=== PATIENT | male | born 1955 | race Caucasian/White ===

== ENCOUNTER 2016-08-11 15:11 | Day surgery (SDC) | payer OTHER ==
[~2016-08-11] VITALS: Ht 170.2 cm; Wt 88.2 kg
[~2016-08-11 15:11] MED LIST: ASPI81TA16 PO; ATOR80TA75 PO; CLOP75TA4 PO; FURO20TA3 PO; IBUP-1542 PO; LISI2.5T59 PO; METO-448 PO; NIT4 SL; PEN500 PO; POTA20TA96 PO
[2016-08-11 16:17] VITALS: Ht 170.2 cm; Wt 88.2 kg
[2016-08-11] MEDS ORDERED: PROPOFOL 20 ML ONE (16:26)
[2016-08-11 16:32] VITALS: BP 103/59; PULSE 58; RESP 20
[2016-08-11] MEDS ORDERED: SACU1TAB PO (16:50)
[2016-08-11] MEDS ORDERED: DICL100G37 TOP (16:50)
[2016-08-11] MEDS ORDERED: ACET1TAB40 PO (16:50)
[2016-08-11] MEDS ORDERED: GABA300C16 PO (16:50)
[2016-08-11 17:39] VITALS: BP 105/58; PULSE 57; RESP 20
--- NOTE | 2016-08-11 18:33 | GILP ---
DATE OF PROCEDURE: 08/11/2016 NAME OF PROCEDURES: Colonoscopy and biopsy. SURGEON: Kesha Ontiveros MD PREOPERATIVE DIAGNOSIS: Screening colonoscopy. POSTOPERATIVE DIAGNOSES 1. Colonoscopy all the way to the cecum. 2. Two small transverse colon polyps were removed using the biopsy forceps. 3. Internal hemorrhoids. INDICATION FOR THE PROCEDURE: Mr. Mauricio Brown is a 61-year-old male patient, who is scheduled for screening colonoscopy. The procedure and possible complications were well explained to the patient, he understood, and cons ented to the procedure. DESCRIPTION OF PROCEDURE: Under the influence of anesthesia, the colonoscope was carefully introduc ed in the rectum, and under direct vision, it was advanced all the way to the cecum. FINDINGS: The patient had 2 small transverse colon polyps and they were removed using the biopsy fo rceps. He was noted to have internal hemorrhoids. He tolerated the procedure very well. There was no complication from the procedure. At the end of the procedure, he was awake with stable vital signs, and he was discharged home to the care of his [facility]. IMPRESSION: 1. Colonoscopy all the way to the cecum. 2. Two small transverse colon polyps were removed using the biopsy forceps. 3. Internal hemorrhoids. PLAN: 1. Await histopathology report. 2. Screening colonoscopy in 10 years. Dictated By: KESHA PARRA/GIOVANI Conf#: [id number] DID#: [id number]
== END 2016-08-11 17:45 | disposition home or self-care (01) ==
LOC: GIL 15:11
PROVIDERS: ATTEND Internal Medicine Gastroenterology
DX: Z12.11 Encounter for screening for malignant neoplasm of colon (principal); D12.3 Benign neoplasm of transverse colon; I25.10 Atherosclerotic heart disease of native coronary artery without angina pectoris; E78.5 Hyperlipidemia, unspecified; I25.2 Old myocardial infarction; Z98.61 Coronary angioplasty status
CPT/HCPCS: 45380; 88305; Z7610